=== PATIENT | male | born 1980 | race Caucasian/White ===

== ENCOUNTER 2019-11-01 18:07 | Emergency (ER) | payer SELFPAY ==
[2019-11-01] MEDS ORDERED: IBUPROFEN 800 MG TAB PO ONE (19:46)
--- NOTE | 2019-11-01 19:50 | Emergency Department Report ---
ED ENT HPI - General Chief complaint: Neck Pain/Injury Stated complaint: RT SIDE FACE PAIN Source: patient Mode of arrival: Ambulatory Limitations: No Limitations - History of Present Illness Initial comments: 39-year-old male presents to the emergency room complaining of neck pain and it hurts when he swallows x2 weeks. Patient reports he has been taking Tylenol without much relief. Patient denies any fever chills no nausea no vomiting. Patient states that the pain is worse with swallowing. Patient specifically points to the right side of neck. Patient does have a past medical history of hypertension and is currently taking benazepril 5 mg daily. Patient reports he does have a primary care provider Dr. Mcdowell. complaint: sore throat Onset/Timin -: week(s) Location: throat Severity scale (0 -10): 4 Quality: aching Consistency: intermittent Improves with: none Worsens with: swallowing Associated Symptoms: pain with swallowing, sore throat. denies: fever, cough, gum swelling, toothache, tinnitus, hearing loss, discharge from ear, rhinorrhea - Related Data Allergies Allergy/AdvReac Type Severity Reaction Status Date / Time No Known Allergies Allergy Verified 11/01/19 18:13 ED Dental HPI - General Chief complaint: Neck Pain/Injury Stated complaint: RT SIDE FACE PAIN Source: patient Mode of arrival: Ambulatory Limitations: No Limitations - Related Data Allergies Allergy/AdvReac Type Severity Reaction Status Date / Time No Known Allergies Allergy Verified 11/01/19 18:13 ED Review of Systems ROS: Stated complaint: RT SIDE FACE PAIN Other details as noted in HPI Comment: All other systems reviewed and negative Constitutional: denies: chills, fever ENT: throat pain. denies: ear pain, congestion Respiratory: denies: cough, shortness of breath, wheezing ED Past Medical Hx - Past Medical History Previous Medical History?: Yes Hx Hypertension: Yes - Surgical History Past Surgical History?: No - Social History Smoking Status: Never Smoker Substance Use Type: None ED Physical Exam - General Limitations: No Limitations General appearance: alert, in no apparent distress - Head Head exam: Present: atraumatic, normocephalic - Eye Eye exam: Present: normal appearance - ENT ENT exam: Present: mucous membranes moist - Expanded ENT Exam Expanded Mouth exam: Present: normal external inspection. Absent: drooling, trismus Throat exam: Positive: normal inspection. Negative: tonsillar erythema, tonsill omegaly, tonsillar exudate - Neck Neck exam: Present: lymphadenopathy (Right tonsillar adenopathy) - Neurological Exam Neurological exam: Present: alert, oriented X3, normal gait - Psychiatric Psychiatric exam: Present: normal affect, normal mood - Skin Skin exam: Present: warm, dry, intact, normal color. Absent: rash ED Course Vital Signs 11/01/19 18:13 Temperature 98.6 F Pulse Rate 67 Respiratory 16 Rate Blood Pressure 147/87 [Left] O2 Sat by Pulse 100 Oximetry ED Medical Decision Making - Medical Decision Making 39-year-old male presents to the emergency room complaining of neck pain and it hurts when he swallows x2 weeks. Patient reports he has been taking Tylenol without much relief. Patient denies any fever chills no nausea no vomiting. Patient states that the pain is worse with swallowing. Patient specifically points to the right side of neck. Patient does have a past medical history of hypertension and is currently taking benazepril 5 mg daily. Patient reports she does have a primary care provider Dr. Mcdowell. Patient has normal vital signs no fever mild right cervical adenopathy will give ibuprofen and have patient follow-up with his primary care provider. Critical care attestation.: If time is entered above; I have spent that time in minutes in the direct care of this critically ill patient, excluding procedure time. ED Disposition Clinical Impression: Anterior cervical lymphadenopathy, Acute sore throat Disposition: - TO HOME OR SELFCARE Is pt being admited?: No Does the pt Need Aspirin: No Condition: Stable Instructions: Strep Throat (ED) Additional Instructions: Take ibuprofen for pain management and follow-up with your primary care pro vider. Referrals: ERICA GAUTHIER MD [Primary Care Provider] - 3-5 Days LALITA MCDOWELL MD [Staff Physician] - 3-5 Days Forms: Work/School Release Form(ED)
[2019-11-01 20:09] VITALS: BP 133/80
== END 2019-11-01 20:09 | disposition home or self-care (01) ==
LOC: ED 18:07
DX: R59.1 Generalized enlarged lymph nodes (principal); J02.9 Acute pharyngitis, unspecified; Z79.899 Other long term (current) drug therapy
CPT/HCPCS: 99282